=== PATIENT | male | born 1990 | race Caucasian/White ===

== ENCOUNTER 2024-10-27 23:09 | Emergency (ER) | payer OTHER, SELFPAY ==
[2024-10-27 23:13] VITALS: BP 119/82
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
== END 2024-10-28 02:03 ==
LOC: EMR 23:09
PROVIDERS: EMERGENCY PHYSICIAN Emergency Medicine
DX: Z02.89 Encounter for other administrative examinations (principal); F17.200 Nicotine dependence, unspecified, uncomplicated
CPT/HCPCS: 99283; 74018